=== PATIENT | female | born 1960 | race Asian ===

== ENCOUNTER 2019-06-08 19:37 | Emergency (ER) | payer OTHER ==
[2019-06-08] MEDS ORDERED: Lactated Ringers 1,000 ML IV ONE (21:49)
[2019-06-08] MEDS ORDERED: Ondansetron 4 MG/2 ML SDV IVPUSH ONE (21:49)
--- NOTE | 2019-06-08 21:55 | EDM.PDOC ---
ED HPI GENERAL MEDICAL PROBLEM - General Chief Complaint: Gastrointestinal Problem Stated Complaint: VOMITING BLOOD SUGAR Time Seen by Provider: 06/08/19 21:11 Source of Information: Reports: Patient, Family () History Limitations: Reports: Language Barrier (Patient primarily speaks Japanese , but her speaks fluent Ukrainian) - History of Present Illness INITIAL COMMENTS - FREE TEXT/NARRATIVE: Mrs. Pinto is a very pleasant 58-year-old woman with a past medical history significant for dyslipidemia, prediabetes, and hypertension, untreated for the past month, who presents to the ED after vomiting today. She took [place] , but subsequently vomited it. She tells me that she develops these vomiting episodes about every 3 months. She states that her blood glucose is normally around 120, but that it was 200 today. She states that she checks her blood pressure every day, and that her blood pressure has been elevated all day today , but that it is ordinarily well controlled, including over the past month, despite not taking any blood pressure medication. The patient was under the belief that her untreated blood pressure was the cause of her vomiting, therefore she went to the walk-in clinic to get a refill of her lisinopril, however, she was sent here without receiving a prescription. The patient denies recent fever, chills, cough, dyspnea, chest pain, palpitations, constipation, diarrhea, abdominal pain, recent weight gain or weight loss, recent bloody bowel movements or black bowel movements, joint aches , headaches, or rashes. Here in the ED, the patient's initial BP was 182/93, however, without treatment , it has decreased to 161/85. The patient's PCP is ROSETTA Robbins. She last saw Ms. Velázquez about 3 months ago. Her next appointment is for 06/23/2019. - Related Data Allergies Allergy/AdvReac Type Severity Reaction Status Date / Time No Known Allergies Allergy Verified 06/08/19 19:48 Home Meds: Home Meds Ondansetron [Zofran ODT] 1 tab PO Q8H PRN #10 tab.dis 06/09/19 [Rx] metFORMIN [Glucophage] 1 tab PO QPM #14 tablet 06/09/19 [Rx] Past Medical History Cardiovascular History: Reports: High Cholesterol, Hypertension (untreated x 1 month) Psychiatric History: Reports: Other (See Below) (Insomnia) Endocrine/Metabolic History: Reports: Diabetes, Type II - Infectious Disease History Infectious Disease History: Reports: Chicken Pox Social & Family History - Family History Family Medical History: Noncontributory - Tobacco Use Smoking Status *Q: Never Smoker Second Hand Smoke Exposure: No - Caffeine Use Caffeine Use: Reports: Soda - Recreational Drug Use Recreational Drug Use: No ED ROS GENERAL - Review of Systems Review Of Systems: Comprehensive ROS is negative, except as noted in HPI. ED EXAM, GI/ABD - Physical Exam Exam: See Below Exam Limited By: No Limitations General Appearance: Alert, WD/WN, No Apparent Distress Eyes: Bilateral: Normal Appearance, EOMI Ears: Normal External Exam, Hearing Grossly Normal Nose: Normal Inspection Throat/Mouth: Normal Inspection, Normal Lips, Normal Voice, No Airway Compromise Head: Atraumatic, Normocephalic Neck: Normal Inspection, Full Range of Motion Respiratory/Chest: No Respiratory Distress, Lungs Clear, Normal Breath Sounds, No Accessory Muscle Use Cardiovascular: Normal Peripheral Pulses, No Edema, No Gallop, No JVD, No Murmur , No Rub, Tachycardia (regular) GI/Abdominal Exam: Normal Bowel Sounds, Soft, Non-Tender, No Organomegaly, No Distention, No Abnormal Bruit, No Mass (Female) Exam: Deferred Rectal (Female) Exam: Deferred Back Exam: Normal Inspection, Full Range of Motion, NT Extremities: Normal Inspection, Normal Range of Motion, No Pedal Edema, Normal Capillary Refill Neurological: Alert, Oriented, Normal Cognition, No Motor/Sensory Deficits Psychiatric: Normal Affect Skin Exam: Warm, Dry, Intact, Normal Color, No Rash EKG INTERPRETATION EKG Date: 06/08/19 Time: 22:01 Rhythm: Other (Sinus tachycardia) Rate (Beats/Min): 116 [place]: Normal P-Wave: Enlarged (REYNA) QRS: RBBB (incomplete) ST-T: Normal QT: Normal Comparison: NA - No Prior EKG Course - Vital Signs Last Recorded V/S: Last Vital Signs Temp 37.0 C 06/08/19 19:44 Pulse 116 H 06/08/19 19:44 Resp 19 06/08/19 19:44 BP 182/93 H 06/08/19 19:44 Pulse Ox 94 L 06/08/19 19:44 Orthostatic Blood Pressure [ 169/93 Standing] Orthostatic Blood Pressure [ 180/90 Sitting] Orthostatic Blood Pressure [ 146/89 Supine] - Orders/Labs/Meds Labs: Laboratory Tests 06/08/19 06/08/19 06/08/19 Range/Units 21:56 21:56 21:56 WBC 11.37 H (3.98-10.04) K/mm3 RBC 4.79 (3.98-5.22) M/mm3 Hgb 14.2 (11.2-15.7) gm/dl Hct 40.4 (34.1-44.9) % MCV 84.3 (79.4-94.8) fl MCH 29.6 (25.6-32.2) pg MCHC 35.1 (32.2-35.5) g/dl RDW Std Deviation 38.6 (36.4-46.3) fL Plt Count 230 (182-369) K/mm3 MPV 10.4 (9.4-12.3) fl Neutrophils % (Manual) 80 H (40-60) % Band Neutrophils % 0 (0-10) % Lymphocytes % (Manual) 16 L (20-40) % Atypical Lymphs % 0 % Monocytes % (Manual) 4 (2-10) % Eosinophils % (Manual) 0 L (0.7-5.8) % Basophils % (Manual) 0 L (0.1-1.2) Platelet Estimate Adequate RBC Morph Comment Normal Sodium 138 (136-145) mEq/L Potassium 3.7 (3.5-5.1) mEq/L Chloride 98 (98-107) mEq/L Carbon Dioxide 25 (21-32) mEq/L Anion Gap 18.7 H (5-15) BUN 14 (7-18) mg/dL Creatinine 0.8 (0.55-1.02) mg/dL Est Cr Clr Drug Dosing 72.63 mL/min Estimated GFR (MDRD) > 60 (>60) mL/min BUN/Creatinine Ratio 17.5 (14-18) Glucose 197 H (74-106) mg/dL Hemoglobin A1c 7.30 H (4.50-6.20) % Calcium 9.5 (8.5-10.1) mg/dL Magnesium 1.7 L (1.8-2.4) mg/dl Total Bilirubin 0.6 (0.2-1.0) mg/dL AST 14 L (15-37) U/L ALT 28 (14-59) U/L Alkaline Phosphatase 96 (46-116) U/L Troponin I < 0.017 (0.00-0.056) ng/mL Total Protein 8.1 (6.4-8.2) g/dl Albumin 4.3 (3.4-5.0) g/dl Globulin 3.8 gm/dL Albumin/Globulin Ratio 1.1 (1-2) Meds: Medications Discontinued Medications Generic Name Dose Route Start Last Admin Trade Name Abelino PRN Reason Stop Dose Admin Lactated Ringer's 1,000 mls @ 999 mls/hr 06/08/19 21:49 06/08/19 22:11 Ringers, Lactated IV 06/08/19 22:49 999 mls/hr .BOLUS ONE Administration Magnesium Sulfate 2 gm/ Premix 50 mls @ 50 mls/hr 06/08/19 23:35 06/08/19 23: 41 IV 06/09/19 00:34 50 mls/hr ONETIME ONE Administration Metformin HCl 850 mg 06/09/19 01:02 06/09/19 01:13 Glucophage PO 06/09/19 01:03 850 mg ONETIME STA Administration Ondansetron HCl 4 mg 06/08/19 21:49 06/08/19 22:11 Zofran IVPUSH 06/08/19 21:50 4 mg ONETIME ONE Administration - Re-Assessments/Exams Free Text/Narrative Re-Assessment/Exam: 06/08/19 21:51 While the patient's blood pressure is elevated here in the ED, she reports that it has been well controlled over the past month despite not being on any antihypertensive medication. If true, this indicates that the patient does not actually have hypertension. The patient was concerned that her elevated blood pressure today was the cause of her vomiting, however, it is the other way around - her emesis caused her elevated blood pressure. With respect to the patient's elevated blood glucose, she also reports a normal blood glucose level when she is not under stress, but an elevated blood glucose when ill. This indicates that she has prediabetes. The patient's physical exam is benign. For today's purposes, I have ordered blood work that includes a chemistry panel, to make sure that she has not suffered any significant electrolyte abnormalities as a result of her vomiting, a troponin and ECG, as the patient was sent from the walk-in clinic over concern her vomiting could represent a cardiac event, and a Hgb A1c to determine if she has prediabetes or actual diabetes. Lastly, because the patient is tachycardic, I have ordered orthostatics. In the meantime, the patient will receive 1 L of IV fluid and IV Zofran. 06/08/19 22:35 The patient is not orthostatic. 06/08/19 23:36 The patient's CBC is remarkable for a WBC count mildly elevated at 11.37, but with 0% bandemia. The remainder of her CBC is unremarkable. Her CMP is remarkable for an anion gap elevated at 18.7, but with a bicarbonate normal at 25. Her blood glucose is elevated at 197. The remainder of her CMP is unremarkable. Her magnesium level is mildly depressed at 1.7. Her troponin is undetectably low. Her Hgb A1c is elevated at 7.30%. I have ordered a 2 g Mg-rider. The patient's elevated Hgb A1c indicates that she has diabetes. I updated her medical record. 06/08/19 23:42 I updated the patient and her on the situation. 06/09/19 00:54 The patient's magnesium has finished infusing. I will discharge her home with a prescription for once-daily metformin and Zofran. I would also like the patient to check her blood pressure 2 or 3 times a week, but only when she is under restful conditions. She should write the values down, then present them to her PCP when she follows up. Departure - Departure Time of Disposition: 00:57 Disposition: Home, Self-Care 01 Condition: Good Clinical Impression: Nausea & vomiting, Newly diagnosed diabetes, Hypomagnesemia - Discharge Information *PRESCRIPTION DRUG MONITORING PROGRAM REVIEWED*: Not Applicable *COPY OF PRESCRIPTION DRUG MONITORING REPORT IN PATIENT ROSEMARIE: Not Applicable Prescriptions: metFORMIN [Glucophage] 1 tab PO QPM #14 tablet Ondansetron [Zofran ODT] 1 tab PO Q8H PRN #10 tab.dis PRN Reason: Nausea/Vomiting Instructions: Diabetes Mellitus and Standards of Medical Care, Carbohydrate Counting for Diabetes Mellitus, Adult Referrals: Charisse Velázquez PA-C [Primary Care Provider] - Forms: ED Department Discharge, ED Return to Work/School Form Additional Instructions: You were seen in the emergency room after vomiting today, finding your blood pressure to be elevated, and your blood glucose (sugar) to be elevated. Workup in the ER included blood work, positional blood pressure checks, and an ECG. Your blood sugar was found to be elevated at 197, and your HgbA1c was found to be elevated at 7.30, indicating that you have true diabetes. Your magnesium level was found to be slightly low at 1.7. The remainder of your workup was unremarkable. You were given IV replacement magnesium, and started on the anti-diabetes medicine metformin. Prescriptions for metformin and the anti-nausea medicine Zofran [facility], located in the [facility] across the street from the hospital. Take one tablet of metformin every evening, with dinner, starting this evening, , 06/09/2019, as prescribed. You may dissolve one tablet of the anti-nausea medicine Zofran on your tongue up to every 8 hours, as needed for nausea/vomiting. It is very important that you eat a diabetic diet, also known as a low glycemic index diet. This means no sugar, candy, or soda pop. Please go to the [place] [employer] website, and look under the section "what to eat" to learn about a low glycemic index diet. As discussed, since your blood pressures have been good over the past month despite not being on any blood pressure medicine, it is possible that you don't have hypertension. We recommend that you check your blood pressure 2-3 times a week, at varying times of the day, but only under restful conditions = you are sitting quietly for at least 5, and preferably 15 minutes, you are not sick, you are not anxious, and you are not in pain. Write the numbers down, then present them to your PCP when you follow-up with her at your previously scheduled appointment on , 06/23/2019. If any other problems, please do not hesitate to return to the ER. Sepsis Event Note - Evaluation Sepsis Screening Result: No Definite Risk - Focused Exam Date Exam was Performed: 06/12/19 Time Exam was Performed: 14:37
[2019-06-08 22:30] LABS: HEMOGLOBIN A1C 7.3 % (4.50-6.20)
[2019-06-08] MEDS ORDERED: Magnesium Sulfate/Water 2 GM in Premix Bag 1 BAG IV ONE (23:35)
== END 2019-06-09 01:24 | disposition home or self-care (01) ==
LOC: JD.ED 19:37
DX: E83.42 Hypomagnesemia (principal); E11.9 Type 2 diabetes mellitus without complications; Z79.84 Long term (current) use of oral hypoglycemic drugs
CPT/HCPCS: 36415; 80053; 83036; 83735; 84484; 85007; 85027; 93005; 96361; 96365; 96375; 99284; A9270; J2405; J3475; J7120; 93010

== ENCOUNTER 2021-06-30 04:53 | Emergency (ER) | payer OTHER ==
[2021-06-30] MEDS: hydrOXYzine HCl 25 MG Tab PO ONE (06:33)
== END 2021-06-30 06:35 | disposition home or self-care (01) ==
LOC: JD.ED 04:53
DX: R42 Dizziness and giddiness (principal); F12.129 Cannabis abuse with intoxication, unspecified; E78.00 Pure hypercholesterolemia, unspecified; I10 Essential (primary) hypertension; E11.9 Type 2 diabetes mellitus without complications; Z79.84 Long term (current) use of oral hypoglycemic drugs; Z86.16 Personal history of COVID-19
CPT/HCPCS: 82947; 93005; 99284-25; A9270-GY

== ENCOUNTER 2022-07-01 15:40 | Emergency (ER) | payer SELFPAY ==
[2022-07-01 17:38] LABS: CORONAVIRUS COVID-19 NAA NEGATIVE (NEGATIVE)
== END 2022-07-01 18:30 | disposition home or self-care (01) ==
LOC: JD.ED 15:40
DX: G47.00 Insomnia, unspecified (principal); I10 Essential (primary) hypertension; E11.9 Type 2 diabetes mellitus without complications; Z20.822 Contact with and (suspected) exposure to COVID-19; Z79.84 Long term (current) use of oral hypoglycemic drugs
CPT/HCPCS: 0241U; 36415; 80053; 82947; 83735; 85025; 99284; 99283